=== PATIENT | male | born 1990 | race African-American/Black ===

== ENCOUNTER 2017-04-08 03:36 | Inpatient (IN) | payer OTHER ==
[~2017-04-08] VITALS: Ht 167.6 cm; Wt 69.4 kg
[2017-04-08 04:00] LABS: EOSINOPHIL (%) 0.5 % (0-5); HEMATOCRIT 45.1 % (38.0-50.0); IMMATURE GRANULOCYTE (%) 0.3 % (0.0-0.7); INSTRUMENT ABS NEUTROPHIL CT 1.9 K/uL; LYMPHOCYTE COUNT 3.9 K/uL (1.0-2.8); MCH 32.2 PG (29.0-34.0); MCHC 34.6 G/DL (30.0-36.0); MCV 93.2 FL (86-99); MEAN PLAT.VOLUME 9.6 uM^3 (9.0-12.4); MONOCYTE (%) 7.5 % (3-12); MONOCYTE COUNT 0.5 K/uL (0-0.8); NEUTROPHIL COUNT 1.9 K/uL (1.8-6.4); PLATELET COUNT 221 K/uL (156-360); RBC DIS.WIDTH-CV 12.7 % (11.8-14.6); RBC DIS.WIDTH-SD 43.8 % (39-53); RED BLOOD COUNT 4.84 M/uL (4.00-5.50); WHITE BLOOD COUNT 6.4 K/uL (4.1-10.2)
[2017-04-08 04:34] LABS: AMYLASE 38 IU/L (1-118); ANION GAP 12 MEQ/L (2-14); CHLORIDE 106 MEQ/L (99-109); GFR ESTIMATE (CALCULATED) > 59 mL/min/; GLUCOSE 92 mg/dL (70-99); LIPASE 24 U/L (1.0-51.0); POTASSIUM 3.8 MEQ/L (3.7-5.4); SAMPLE HEMOLYSIS CHECK 0; SAMPLE ICTERIC CHECK 0; SAMPLE LIPEMIA CHECK 0; SERUM ETHYL ALCOHOL 198 mg/dL; SODIUM 141 MEQ/L (136-147); UREA NITROGEN (BUN) 9 mg/dL (9-23)
[2017-04-08 07:43] VITALS: BP 119/66
[2017-04-08 07:48] VITALS: BP 119/66
[2017-04-08] MEDS ORDERED: PERCOCET 5/31 TABLET PO (10:56)
[2017-04-08 12:14] VITALS: BP 131/73
[2017-04-08 14:33] VITALS: BP 83/53
[2017-04-08 17:57] VITALS: BP 135/81
[2017-04-08 20:46] VITALS: BP 130/76
[2017-04-09 00:07] VITALS: BP 132/62
[2017-04-09 04:12] VITALS: BP 115/55
[2017-04-09 05:02] LABS: CHLORIDE 106 mEq/L (99-109); POTASSIUM 3.6 mEq/L (3.7-5.4); SODIUM 138 mEq/L (136-147)
[2017-04-09 05:04] LABS: GLUCOSE 80 mg/dL (70-99); HEMATOCRIT 38.4 % (38.0-50.0); MCH 31.9 PG (29.0-34.0); MCHC 34.6 G/DL (30.0-36.0); MCV 92.1 FL (86-99); MEAN PLAT.VOLUME 9.5 uM^3 (9.0-12.4); PLATELET COUNT 180 K/uL (156-360); RBC DIS.WIDTH-CV 12.9 % (11.8-14.6); RBC DIS.WIDTH-SD 43.8 % (39-53); RED BLOOD COUNT 4.17 M/uL (4.00-5.50)
[2017-04-09 05:05] LABS: ANION GAP 8 MEQ/L (2-14)
[2017-04-09 05:08] LABS: GFR ESTIMATE (CALCULATED) > 59 mL/min/
[2017-04-09 05:09] LABS: UREA NITROGEN (BUN) 10 mg/dL (9-23)
[2017-04-09 05:10] LABS: WHITE BLOOD COUNT 10.5 K/uL (4.1-10.2)
[2017-04-09 08:04] VITALS: BP 137/63
[2017-04-09 11:50] VITALS: BP 132/74
[2017-04-09 16:35] VITALS: BP 148/77
[2017-04-10 00:12] VITALS: BP 104/62
[2017-04-10 07:58] VITALS: BP 129/84
[2017-04-10 16:13] VITALS: BP 140/89
[2017-04-10 19:26] LABS: ADD MIUA? NO; BILIRUBIN NEGATIVE; BLOOD NEGATIVE; COLOR YELLOW ((YELLOW)); GLUCOSE (STRIP) NEGATIVE; KETONES 5; LEUKOCYTES NEGATIVE; NITRITE NEGATIVE; PROTEIN (STRIP) NEGATIVE; UCUL ADDED? NO; UROBILINOGEN 0.2 MG/DL (0.2-1.0)
[2017-04-10 23:42] VITALS: BP 123/62
[2017-04-11 08:02] VITALS: BP 126/72
== END 2017-04-11 15:55 | disposition home or self-care (01) | DRG 965 ==
LOC: EDBD 03:36 → TRA 03:36 → 3EAST 05:51 → EDOF 05:51 → 3EAST 07:22
PROVIDERS: Emergency Medicine; Physician Assistant Surgical; Surgery
DX: S27.0XXA Traumatic pneumothorax, initial encounter (principal); S06.6X0A Traumatic subarachnoid hemorrhage without loss of consciousness, initial encounter; S60.512A Abrasion of left hand, initial encounter; S30.811A Abrasion of abdominal wall, initial encounter; V47.5XXA Car driver injured in collision with fixed or stationary object in traffic accident, initial encounter; Y92.410 Unspecified street and highway as the place of occurrence of the external cause; F10.129 Alcohol abuse with intoxication, unspecified; Y90.6 Blood alcohol level of 120-199 mg/100 ml; R40.2412 Glasgow coma scale score 13-15, at arrival to emergency department; M25.572 Pain in left ankle and joints of left foot; F43.11 Post-traumatic stress disorder, acute
CPT/HCPCS: 70450; 71020; 71260; 72125; 72129; 72132; 73130; 73564; 73610; 74177; 80048; 81003; 82150; 83690; 85025; 85027; 86900; 86901; 99281; 99285; C9113; G0480; J1170; J2060; J7120